=== PATIENT | male | born 2000 | race Caucasian/White ===

== ENCOUNTER 2025-03-30 19:26 | Emergency (ER) | payer OTHER ==
[2025-03-30] MEDS ORDERED: NA CHLORIDE 0.9% 1,000 ML ONE (20:04)
[2025-03-30 20:39] LABS: Absolute Basophils 0.1 K/uL (0-0.5); Absolute Lymphocytes (CBC) 1.5 K/uL (0.7-4.9); Absolute Monocytes 1.2 K/uL (0.1-1.3); Absolute Neutrophil 11.5 K/uL (1.8-8.0); Basophils % 0.4 % (0-1.3); Eosinophils % 0.1 % (0-4.4); Hematocrit 43.8 % (39.6-49.0); Hemoglobin 15.2 g/dL (13.6-17.9); Lymphocytes % 10.5 % (15.3-44.8); MCH 32.2 pg (27.0-35.0); MCHC 34.7 g/dL (32.0-36.0); MCV 92.6 fL (80-100); MPV 7.5 fL (7.6-11.3); Monocytes % 8.6 % (3.3-12.3); Neutrophils % 80.4 % (41.7-73.7); Platelets 243 thou/uL (152-406); RBC Red Blood Cell Count 4.73 M/uL (4.33-5.43); Red Cell Distribution Width 14.3 % (12.1-15.2)
[2025-03-30 20:50] LABS: Albumin 3.7 g/dL (3.4-5.0); Anion Gap 10.5 mEq/L (5.0-15.0); Bilirubin Total 0.4 mg/dL (0.2-1.0); C-Reactive Protein 55.5 mg/L (<3.00); Globulin 3.6 g/dL (2.3-3.5); Potassium 3.5 mEq/L (3.5-5.1); Protein, Total 7.3 g/dL (6.4-8.2)
--- NOTE | 2025-03-30 21:05 | RAD REPORT ---
EXAMINATION: UPPER EXTREMITY VENOUS UNILATE CLINICAL INDICATION: Right arm pain TECHNIQUE: Complete bilateral duplex sonography of the right upper extremity veins was performed. The examination included compression for vein patency, color Doppler imaging and flow augmentation in response to distal compression of the internal jugular,, subclavian, axillary, brachial, radial, ulna r, cephalic and basilic veins. .Grayscale, color and spectral analysis performed on all vessels COMPARISON: No prior exam. FINDINGS: The right internal jugular, subclavian, axillary, brachial, basilic, cephalic, radial and ulnar veins are generally compressible and demonstrate augmentation. Color Doppler demonstrates good flow. IMPRESSION: No evidence of venous thrombus right arm
[2025-03-30] MEDS ORDERED: SMZ./TMP. 800/160 MG TABLET ONE ×2 (21:48→22:01)
[2025-03-30] MEDS ORDERED: KETOROLAC 30 MG/ML INJ ONE (21:48)
[2025-03-30] MEDS ORDERED: CLINDAMYCIN 900MG/D5W 900 MG/50 ML IVPB IV ONE (21:49)
--- NOTE | 2025-03-30 22:23 | ER ---
Nurse's Notes [facility] Name: Tk Slaughter Age: 24 yrs Sex: Male : 2000 Arrival Date: 03/30/2025 Time: 19:26 Bed 15 Private MD: Diagnosis: Cellulitis of right upper limb Presentation: 03/30 19:37 Chief complaint: Patient states: right upper arm pain, redness and swelling beginning lg3 this morning. Coronavirus screen: Client denies travel out of the [place] in the last 14 days. At this time, the client does not indicate any symptoms associated with coronavirus-19. Ebola Screen: No symptoms or risks identified at this time. Initial Sepsis Screen: Does the patient meet any 2 criteria? No. Patient's initial sepsis screen is negative. Does the patient have a suspected source of infection? No. Patient's initial sepsis screen is negative. Risk Assessment: Do you want to hurt yourself or someone else? Patient reports no desire to harm self or others. Onset of symptoms was March 30, 2025. 19:37 Method Of Arrival: Ambulatory lg3 19:37 Acuity: CHEN 3 lg3 Triage Assessment: 19:39 General: Appears in no apparent distress. comfortable, Behavior is calm, cooperative. lg3 Pain: Complains of pain in right tricep. EENT: No deficits noted. No signs and/or symptoms were reported regarding the EENT system. Neuro: No deficits noted. Rodriguez Agitation-Sedation Scale (RASS): 0 - Alert and Calm Level of Consciousness is awake, alert, obeys commands, Oriented to person, place, time, situation. Cardiovascular: No deficits noted. Denies chest pain, shortness of breath, Capillary refill < 3 seconds Clubbing of nail beds is absent JVD is absent Patient's skin is warm and dry. Respiratory: No deficits noted. Airway is patent Respiratory effort is even, unlabored, Respiratory pattern is regular, symmetrical. GI: No deficits noted. No signs and/or symptoms were reported involving the gastrointestinal system. : No signs and/or symptoms were reported regarding the genitourinary system. Derm: Skin is intact, is healthy with good turgor, Skin is dry, Skin is normal, Skin temperature is warm redness and swelling to right upper arm noted. Musculoskeletal: No deficits noted. Circulation, motion, and sensation intact. Range of motion: intact in all extremities. Historical: - Allergies: 19:39 No Known Allergies; lg3 - Home Meds: 19:39 None [Active]; lg3 - PMHx: 19:39 None; lg3 - PSHx: 19:39 left wrist; right ankle; lg3 - Immunization history:: Adult Immunizations up to date. - Infectious Disease History:: Denies. - Social history:: Smoking status: Reported history of juuling and/or vaping. Patient uses alcohol, occasionally. Screenin:31 [facility] ED Fall Risk Assessment (Adult) History of falling in the last 3 months, cm10 including since admission No falls in past 3 months (0 pts) Confusion or Disorientation No (0 pts) Intoxicated or Sedated No (0 pts) Impaired Gait No (0 pts) Mobility Assist Device Used No (0 pt) Altered Elimination No (0 pt) Score/Fall Risk Level 0 - 2 = Low Risk Oriented to surroundings, Maintained a safe environment, Hourly rounding (assess needs \T\ fall precautionary measures) done. Abuse screen: Denies threats or abuse. Denies injuries from another. Nutritional screening: No deficits noted. Tuberculosis screening: No symptoms or risk factors identified. Assessment: 20:30 General: Appears in no apparent distress. comfortable, Behavior is calm, cooperative. cm10 Pain: Complains of pain in right arm Pain currently is 4 out of 10 on a pain scale. Neuro: No deficits noted. Level of Consciousness is awake, alert, obeys commands, Oriented to person, place, time, situation, Appropriate for age. Respiratory: No deficits noted. Airway is patent Respiratory effort is even, unlabored, Respiratory pattern is regular, symmetrical. Derm: redness and swelling right upper arm. 22:04 Reassessment: Patient appears in no apparent distress at this time. Patient and/or cm10 family updated on plan of care and expected duration. Pain level reassessed. Patient is alert, oriented x 3, equal unlabored respirations, skin warm/dry/pink. Vital Signs: 19:37 BP 153 / 62; Pulse 98; Resp 16 S; Temp 98.4(O); Pulse Ox 99% on R/A; Weight 86.18 kg lg3 (R); Height 5 ft. 8 in. (R); Pain 4/10; 19:43 BP 160 / 53; Pulse 99; Resp 14 S; Temp 98.7(O); Pulse Ox 97% on R/A; Weight 86.18 kg sa1 (R); Height 5 ft. 8 in. (R); 21:00 BP 147 / 73; Pulse 96; Resp 15; Pulse Ox 100% on R/A; cm10 22:00 BP 134 / 65; Pulse 94; Resp 16; Pulse Ox 99% on R/A; cm10 22:52 BP 127 / 69; Pulse 87; Resp 16; Temp 98.4; Pulse Ox 98% on R/A; dd2 19:43 Body Mass Index 28.89 (86.18 kg, 172.72 cm) sa1 19:37 Pain Scale: Adult 3 ED Course: 19:30 Patient arrived in ED. jj6 19:32 Bandar Grimm PA is PHCP. cp 19:32 Torie Pierre MD is Attending Physician. cp 19:39 Triage completed. lg3 19:40 Blanca Escudero, RN is Primary Nurse. cm10 19:40 Arm band placed on right wrist. Patient placed in an exam room, on a stretcher. cm10 20:22 Initial lab(s) drawn, by me, sent to lab. First set of blood cultures drawn by me. cm10 Inserted saline lock: 20 gauge in left forearm, using aseptic technique. Blood collected. Flushed with 10 mL NS. 20:29 CBC with Diff Sent. cm10 20:29 CRP Sent. cm10 20:29 CMP Sent. cm10 20:29 Lactate w/ 2H reflex if indic. Sent. cm10 20:31 Patient has correct armband on for positive identification. Placed in gown. Bed in low cm10 position. Call light in reach. Side rails up X 1. Pulse ox on. NIBP on. 20:51 UPPER EXTREMITY VENOUS UNILATE In Process Unspecified. EDMS 20:59 Second set of blood cultures drawn by me. sa1 21:01 Sebastian Noland MD is Attending Physician. cp 22:52 Provided Education on: d/c education, medication and f/u. dd2 22:52 No provider procedures requiring assistance completed. IV discontinued, intact, dd2 bleeding controlled, No redness/swelling at site. Pressure dressing applied. Administered Medications: 20:22 Drug: NS 0.9% IV 1000 ml IV at 1000 ml once; to be given as a bolus over 60 minutes cm10 Route: IV; Rate: 1000 ml; Site: left forearm; 21:30 Follow up: Response: No adverse reaction; IV Status: Completed infusion; IV Intake: dd2 1000ml 22:03 Follow up: Response: No adverse reaction; IV Status: Completed infusion; IV Intake: cm10 1000ml 22:02 Drug: Clindamycin IVPB 900 mg IVPB once over 30 mins; (mix in 50 mL) Route: IVPB; cm10 Infused Over: 30 mins; Site: left forearm; 22:45 Follow up: Response: No adverse reaction; IV Status: Infusion continued dd2 22:02 Drug: Trimethoprim-Sulfamethoxazole PO (160 mg-800 mg (DS) 2 tablet PO once Route: PO; cm10 22:51 Follow up: Response: No adverse reaction dd2 22:02 Drug: Ketorolac IVP 15 mg IVP once Route: IVP; Site: left forearm; cm10 22:13 Follow up: Response: No adverse reaction dd2 Medication: 20:31 VIS not applicable for this client. cm10 Intake: 21:30 IV: 1000ml; Total: 1000ml. dd2 22:03 IV: 1000ml; Total: 2000ml. cm10 Outcome: 22:22 Discharge ordered by MD. cp 22:52 Discharged to home ambulatory, dd2 22:52 Condition: stable 22:52 Discharge instructions given to patient, Instructed on discharge instructions, follow up and referral plans. medication usage, Demonstrated understanding of instructions, follow-up care, medications, Prescriptions given X 3, 22:54 Patient left the ED. dd2 Signatures: Dispatcher [employer] EDMS Bandar Grimm PA PA cp Able, Lacie RN RN lg3 Raisa Hunter jj6 Blanca Escudero RN RN cm10 Sultan Kanwal 1 KULWINDER WILLOUGHBY RN RN dd2
--- NOTE | 2025-03-30 22:23 | EDPHYS ---
Physician Documentation [facility] Name: Tk Slaughter Age: 24 yrs Sex: Male : 2000 Arrival Date: 03/30/2025 Time: 19:26 Bed 15 Private MD: ED Physician Sebastian Noland HPI: 03/30 20:05 This 24 yrs old Male presents to ER via Ambulatory with complaints of Rash, Arm Problem.cp 20:05 The patient or guardian complains of Patient is a 24-year-old male with no significant cp past medical history who reports upon awakening this morning he noticed that his right upper arm felt warm, noticed some redness and was painful to the touch. He states that throughout the day today the redness and discomfort has increased. Reports she was at work today when a heavy piece of equipment did strike his right upper arm but the redness swelling and pain started prior to that. Patient denies fever, chills and/or sweats. Historical: - Allergies: 19:39 No Known Allergies; lg3 - Home Meds: 19:39 None [Active]; lg3 - PMHx: 19:39 None; lg3 - PSHx: 19:39 left wrist; right ankle; lg3 - Immunization history:: Adult Immunizations up to date. - Infectious Disease History:: Denies. - Social history:: Smoking status: Reported history of juuling and/or vaping. Patient uses alcohol, occasionally. ROS: 20:10 Constitutional: Negative for body aches, chills, fever, poor PO intake, cp 20:10 Eyes: Negative for injury, pain, redness, and discharge, cp 20:10 Cardiovascular: Negative for chest pain, 20:10 Respiratory: Negative for cough, shortness of breath, wheezing, 20:10 Abdomen/GI: Negative for abdominal pain, nausea, vomiting, and diarrhea, 20:10 Back: Negative for pain at rest, pain with movement, 20:10 MS/extremity: Positive for swelling, tenderness, warmth, of the right upper arm, Negative for decreased range of motion, deformity, paresthesias, 20:10 Neuro: Negative for altered mental status, dizziness, headache, syncope, weakness, 20:10 All other systems are negative, Exam: 20:15 Constitutional: The patient appears in no acute distress, alert, awake, cp non-diaphoretic, non-toxic, well developed, well nourished, 20:15 Head/Face: Normocephalic, atraumatic. cp 20:15 Eyes: Periorbital structures: appear normal, Conjunctiva: normal, no exudate, no injection, Sclera: no appreciated abnormality, Lids and lashes: appear normal, bilaterally, 20:15 ENT: External ear(s): are unremarkable, Nose: is normal, Mouth: Lips: moist, Oral mucosa: moist, Posterior pharynx: Airway: no evidence of obstruction, patent, 20:15 Neck: ROM/movement: is normal, is supple, without pain, no range of motions limitations, no meningismus, no nuchal rigidity, 20:15 Chest/axilla: Inspection: normal, Palpation: is normal, no crepitus, no tenderness, 20:15 Cardiovascular: Rate: normal, Rhythm: regular, Pulses: Pulses are 2+ in right radial artery. JVD: is not appreciated, 20:15 Respiratory: the patient does not display signs of respiratory distress, Respirations: normal, no use of accessory muscles, no retractions, labored breathing, is not present, Breath sounds: are clear throughout, no decreased breath sounds, no stridor, no wheezing, 20:15 Abdomen/GI: Inspection: abdomen appears normal, Palpation: abdomen is soft and non-tender, in all quadrants, 20:15 Musculoskeletal/extremity: Extremities: noted in the right upper arm: Well-circumscribed area of erythema noted to the right anterior and lateral upper arm, area is approximately the size of a softball, there is mild induration, skin is warm to the touch and tender, 20:15 Neuro: Orientation: to person, place \T\ time. Mentation: is normal, Motor: moves all fours, strength is normal, Sensation: is normal, Vital Signs: 19:37 BP 153 / 62; Pulse 98; Resp 16 S; Temp 98.4(O); Pulse Ox 99% on R/A; Weight 86.18 kg lg3 (R); Height 5 ft. 8 in. (R); Pain 4/10; 19:43 BP 160 / 53; Pulse 99; Resp 14 S; Temp 98.7(O); Pulse Ox 97% on R/A; Weight 86.18 kg sa1 (R); Height 5 ft. 8 in. (R); 21:00 BP 147 / 73; Pulse 96; Resp 15; Pulse Ox 100% on R/A; cm10 22:00 BP 134 / 65; Pulse 94; Resp 16; Pulse Ox 99% on R/A; cm10 22:52 BP 127 / 69; Pulse 87; Resp 16; Temp 98.4; Pulse Ox 98% on R/A; dd2 19:43 Body Mass Index 28.89 (86.18 kg, 172.72 cm) sa1 19:37 Pain Scale: Adult lg3 MDM: 19:38 Medical Screening Exam initiated cp 22:21 Data reviewed: vital signs, nurses notes, lab test result(s), radiologic studies, cp ultrasound, and as a result, I will discharge patient. 22:21 Differential diagnosis: abscess, dvt, cellulitis, sepsis. I considered the following cp discharge prescriptions or medication management in the emergency department Medications were administered in the Emergency Department. See MAR. Counseling: I had a detailed discussion with the patient and/or guardian regarding the historical points, exam findings, and any diagnostic results supporting the discharge/admit diagnosis, lab results, radiology results, to return to the emergency department if symptoms worsen or persist or if there are any questions or concerns that arise at home. Response to treatment: the patient's symptoms have mildly improved after treatment, and as a result, I will discharge patient. 03/30 20:01 Order name: CBC with Diff; Complete Time: 21:00 cp 03/30 20:01 Order name: CRP; Complete Time: 21:00 cp 03/30 20:01 Order name: CMP; Complete Time: 21:00 cp 03/30 20:01 Order name: Lactate w/ 2H reflex if indic.; Complete Time: 21:00 cp 03/30 20:01 Order name: Blood Culture Adult (2) cp 03/30 20:11 Order name: UPPER EXTREMITY VENOUS UNILATE; Complete Time: 21:36 EDMS 03/30 20:01 Order name: IV; Complete Time: 20:28 cp Administered Medications: 20:22 Drug: NS 0.9% IV 1000 ml IV at 1000 ml once; to be given as a bolus over 60 minutes cm10 Route: IV; Rate: 1000 ml; Site: left forearm; 21:30 Follow up: Response: No adverse reaction; IV Status: Completed infusion; IV Intake: dd2 1000ml 22:03 Follow up: Response: No adverse reaction; IV Status: Completed infusion; IV Intake: cm10 1000ml 22:02 Drug: Clindamycin IVPB 900 mg IVPB once over 30 mins; (mix in 50 mL) Route: IVPB; cm10 Infused Over: 30 mins; Site: left forearm; 22:45 Follow up: Response: No adverse reaction; IV Status: Infusion continued dd2 22:02 Drug: Trimethoprim-Sulfamethoxazole PO (160 mg-800 mg (DS) 2 tablet PO once Route: PO; cm10 22:51 Follow up: Response: No adverse reaction dd2 22:02 Drug: Ketorolac IVP 15 mg IVP once Route: IVP; Site: left forearm; cm10 22:13 Follow up: Response: No adverse reaction dd2 Disposition Summary: 03/30/25 22:22 Discharge Ordered Notes: Location: Home cp Problem: new cp Symptoms: have improved cp Condition: Stable cp Diagnosis - Cellulitis of right upper limb cp Followup: cp - With: Private Physician - When: 2 - 3 days - Reason: Recheck today's complaints Discharge Instructions: - Discharge Summary Sheet cp - Cellulitis, Adult cp Forms: - Medication Reconciliation Form cp - Antibiotic Education cp - Prescription Opioid Use cp - Patient Portal Instructions cp - Leadership Thank You Letter cp Prescriptions: - Anaprox DS 550 mg Oral Tablet - take 1 tablet ORAL route every 12 hours As needed; 20 tablet; Refills: 0, cp Product Selection Permitted - Clindamycin HCl 300 mg Oral Capsule - take 1 capsule ORAL route every 6 hours for 10 days; 40 capsule; Refills: 0, cp Product Selection Permitted - Bactrim DS 800-160 mg Oral Tablet - take 1 tablet ORAL route every 12 hours for 10 days; 20 tablet; Refills: 0, cp Product Selection Permitted Signatures: Dispatcher [employer] EDMS Bandar Grimm PA PA cp Able, Lacie, RN RN lg3 Blanca Escudero RN RN cm10 KULWINDER WILLOUGHBY RN dd2 Corrections: (The following items were deleted from the chart) 20:11 20:01 Extremity Venous Uni [email or web address] ordered. EDMS EDMS
[2025-03-30 23:28] VITALS: TEMP 98.4
[2025-03-30 23:34] VITALS: BP 127/69; O2SAT 98
== END 2025-03-30 22:54 | disposition home or self-care (01) ==
LOC: ER 19:26
DX: L03.113 Cellulitis of right upper limb (principal)
CPT/HCPCS: 96365; 96361; 87040 ×2; 85025; 36415; 83605; 80053; 86140; 93971; 96375; 99284; J7030

== ENCOUNTER 2025-04-01 13:56 | Emergency (ER) | payer OTHER ==
[2025-04-01] MEDS ORDERED: SMZ./TMP. 800/160 MG TABLET ONE (14:15)
--- NOTE | 2025-04-01 14:18 | EDPHYS ---
Physician Documentation [facility] Name: Tk Slaughter Age: 24 yrs Sex: Male : 2000 Arrival Date: 04/01/2025 Time: 13:56 Bed 20 Private MD: ED Physician Bandar Hernandez HPI: 04/01 14:11 This 24 yrs old Male presents to ER via Ambulatory with complaints of Arm shereen infection. 14:11 The patient presents with an abscess of the right bicep and right tricep, The patient shereen presents with cellulitis of the right arm, the patient presents with a swollen area of the right bicep. Description: erythematous, swollen. Onset: The symptoms/episode began/occurred 3 day(s) ago. The patient or guardian complains of an abscess, decreased range of motion, pain, that is acute. The complaints affect the right bicep and right tricep. Modifying factors: The symptoms are alleviated by nothing. the symptoms are aggravated by nothing. Severity of symptoms: At their worst the symptoms were moderate. Historical: - Allergies: 14:09 No Known Allergies; ss - PSHx: 14:09 Left wrist; Right Ankle; ss - Immunization history:: Adult Immunizations. - Infectious Disease History:: Denies. - Social history:: Smoking status: Patient denies any tobacco usage or history of. - Family history:: not pertinent. ROS: 14:11 Constitutional: Negative for fever, chills, and weight loss, Eyes: Negative for injury, shereen pain, redness, and discharge, ENT: Negative for injury, pain, and discharge, Neck: Negative for injury, pain, and swelling, Cardiovascular: Negative for chest pain, palpitations, and edema, Respiratory: Negative for shortness of breath, cough, wheezing, and pleuritic chest pain, Abdomen/GI: Negative for abdominal pain, nausea, vomiting, diarrhea, and constipation, Back: Negative for injury and pain, : Negative for injury, bleeding, discharge, and swelling, Neuro: Negative for headache, weakness, numbness, tingling, and seizure, Psych: Negative for depression, anxiety, suicide ideation, homicidal ideation, and hallucinations, Allergy/Immunology: Negative for hives, rash, and allergies, Endocrine: Negative for neck swelling, polydipsia, polyuria, polyphagia, and marked weight changes, Hematologic/Lymphatic: Negative for swollen nodes, abnormal bleeding, and unusual bruising, 14:11 MS/extremity: Positive for injury or acute deformity, decreased range of motion, pain, swelling, tenderness, warmth, Exam: 14:13 Constitutional: This is a well developed, well nourished patient who is awake, alert, shereen and in no acute distress. Head/Face: Normocephalic, atraumatic. Eyes: Pupils equal round and reactive to light, extra-ocular motions intact. Lids and lashes normal. Conjunctiva and sclera are non-icteric and not injected. Cornea within normal limits. Periorbital areas with no swelling, redness, or edema. ENT: Nares patent. No nasal discharge, no septal abnormalities noted. Tympanic membranes are normal and external auditory canals are clear. Oropharynx with no redness, swelling, or masses, exudates, or evidence of obstruction, uvula midline. Mucous membranes moist. Neck: Trachea midline, no thyromegaly or masses palpated, and no cervical lymphadenopathy. Supple, full range of motion without nuchal rigidity, or vertebral point tenderness. No Meningismus. Chest/axilla: Normal chest wall appearance and motion. Nontender with no deformity. No lesions are appreciated. Cardiovascular: Regular rate and rhythm with a normal S1 and S2. No gallops, murmurs, or rubs. Normal PMI, no JVD. No pulse deficits. Respiratory: Lungs have equal breath sounds bilaterally, clear to auscultation and percussion. No rales, rhonchi or wheezes noted. No increased work of breathing, no retractions or nasal flaring. Abdomen/GI: Soft, non-tender, with normal bowel sounds. No distension or tympany. No guarding or rebound. No evidence of tenderness throughout. Back: No spinal tenderness. No costovertebral tenderness. Full range of motion. Male : Normal genitalia with no discharge or lesions. MS/ Extremity: Pulses equal, no cyanosis. Neurovascular intact. Full, normal range of motion., bilateral aka Neuro: Awake and alert, GCS 15, oriented to person, place, time, and situation. Cranial nerves II-XII grossly intact. Motor strength 5/5 in all extremities. Sensory grossly intact. Cerebellar exam normal. Normal gait. Psych: Awake, alert, with orientation to person, place and time. Behavior, mood, and affect are within normal limits. 14:13 Skin: cellulitis, that is mild, induration, that is mild is noted, Vital Signs: 14:07 BP 125 / 87; Pulse 93; Resp 14; Temp 97.8(O); Pulse Ox 98% on R/A; Weight 86.18 kg; ss Height 5 ft. 8 in. ; Pain 0/10; 14:07 Body Mass Index 28.89 (86.18 kg, 172.72 cm) 14:07 Pain Scale: Adult ss MDM: 14:01 Medical Screening Exam initiated shereen 14:14 Data reviewed: vital signs, nurses notes. Consideration of Admission/Observation shereen Escalation of care including admission/observation considered. I considered the following discharge prescriptions or medication management in the emergency department Medications were administered in the Emergency Department. See MAR. Test considered but Not performed: Labs: no labs. Care significantly affected by the following chronic conditions: none. Counseling: I had a detailed discussion with the patient and/or guardian regarding the historical points, exam findings, and any diagnostic results supporting the discharge/admit diagnosis, the need for outpatient follow up, a general surgeon. Administered Medications: 14:18 Drug: Trimethoprim-Sulfamethoxazole PO (160 mg-800 mg (DS) 1 tablet PO once Route: PO; kj2 14:25 Follow up: Response: No adverse reaction ll1 Disposition Summary: 04/01/25 14:18 Discharge Ordered Notes: Location: Home shereen Problem: new shereen Symptoms: have improved shereen Condition: Stable shereen Diagnosis - Cellulitis and acute lymphangitis of other parts of limb shereen - Insect bite (nonvenomous) of right upper arm shereen Followup: shereen - With: Private Physician - When: 2 - 3 days - Reason: Recheck today's complaints, Continuance of care, Re-evaluation by your physician Followup: shereen - With: Horace Sage MD - When: 2 - 3 days - Reason: Recheck today's complaints, Re-evaluation by your physician Discharge Instructions: - Discharge Summary Sheet shereen - Insect Bite, Adult, [id number] shereen - Insect Bite, Adult shereen - Cellulitis, Adult shereen - Cellulitis, Adult, [id number] shereen Forms: - Medication Reconciliation Form shereen - Antibiotic Education shereen - Prescription Opioid Use shereen - Patient Portal Instructions [facility] - Leadership Thank You Letter [facility] Prescriptions: - Clindamycin HCl 300 mg Oral Capsule - take 1 capsule ORAL route every 6 hours for 10 days; 40 capsule; Refills: 0, [facility] Product Selection Permitted - Bactrim DS 800-160 mg Oral Tablet - take 1 tablet ORAL route every 12 hours for 10 days; 20 tablet; Refills: 0, [facility] Product Selection Permitted Signatures: Bandar Hernandez MD MD cha Blanchard, Shelby, RN RN ss Refugio Hammond RN RN ll1 Denisse Bruce RN RN kj2
--- NOTE | 2025-04-01 14:18 | ER ---
Nurse's Notes [facility] Name: Tk Slaughter Age: 24 yrs Sex: Male : 2000 Arrival Date: 04/01/2025 Time: 13:56 Bed 20 Private MD: Diagnosis: Cellulitis and acute lymphangitis of other parts of limb;Insect bite (nonvenomous) of right upper arm Presentation: 04/01 14:07 Chief complaint: Patient states: given abx for cellulitis two days ago. Pt reports ss redness seems to be spreading in one area, but improving in another. Coronavirus screen: Client denies travel out of the [place] in the last 14 days. Ebola Screen: Patient denies exposure to infectious person. Patient denies travel to an Ebola-affected area in the 21 days before illness onset. Initial Sepsis Screen: Does the patient meet any 2 criteria? No. Patient's initial sepsis screen is negative. Does the patient have a suspected source of infection? No. Patient's initial sepsis screen is negative. Risk Assessment: Do you want to hurt yourself or someone else? Patient reports no desire to harm self or others. Note Pt reports he has not been taking his clindamycin 4 times a day and has not been taking the Bactrim at all. Dr. Hernandez at bedside educating pt now. Onset of symptoms was April 01, 2025. 14:07 Method Of Arrival: Ambulatory ss 14:07 Acuity: CHEN 5 ss Historical: - Allergies: 14:09 No Known Allergies; ss - PSHx: 14:09 Left wrist; Right Ankle; ss - Immunization history:: Adult Immunizations. - Infectious Disease History:: Denies. - Social history:: Smoking status: Patient denies any tobacco usage or history of. - Family history:: not pertinent. Screenin:20 [facility] ED Fall Risk Assessment (Adult) History of falling in the last 3 months, kj2 including since admission No falls in past 3 months (0 pts) Confusion or Disorientation No (0 pts) Intoxicated or Sedated No (0 pts) Impaired Gait No (0 pts) Mobility Assist Device Used No (0 pt) Altered Elimination No (0 pt) Score/Fall Risk Level 0 - 2 = Low Risk Maintained a safe environment, Hourly rounding (assess needs \T\ fall precautionary measures) done. Abuse screen: Denies threats or abuse. Denies injuries from another. Nutritional screening: No deficits noted. Tuberculosis screening: No symptoms or risk factors identified. Assessment: 14:18 General: Appears in no apparent distress. Behavior is calm, cooperative. Pain: kj2 Complains of pain in right bicep and right arm Pain currently is 3 out of 10 on a pain scale. Neuro: Level of Consciousness is awake, alert, obeys commands, Oriented to person, place, time, situation. Cardiovascular: Patient's skin is warm and dry. Respiratory: Airway is patent Respiratory effort is even, unlabored. GI: No signs and/or symptoms were reported involving the gastrointestinal system. : No signs and/or symptoms were reported regarding the genitourinary system. 14:25 Reassessment: No changes from previously documented assessment. Patient and/or family ll1 updated on plan of care and expected duration. Pain level reassessed. Vital Signs: 14:07 BP 125 / 87; Pulse 93; Resp 14; Temp 97.8(O); Pulse Ox 98% on R/A; Weight 86.18 kg; ss Height 5 ft. 8 in. ; Pain 0/10; 14:07 Body Mass Index 28.89 (86.18 kg, 172.72 cm) 14:07 Pain Scale: Adult ss ED Course: 13:58 Patient arrived in ED. mr 14:01 Bandar Hernandez MD is Attending Physician. [facility] 14:09 Triage completed. 14:09 Arm band placed on right wrist. 14:17 Horace Sage MD is Referral Physician. [facility] 14:20 Patient has correct armband on for positive identification. Bed in low position. Call kj2 light in reach. Provided Education on: call light. 14:25 No provider procedures requiring assistance completed. Patient did not have IV access ll1 during this emergency room visit. Administered Medications: 14:18 Drug: Trimethoprim-Sulfamethoxazole PO (160 mg-800 mg (DS) 1 tablet PO once Route: PO; kj2 14:25 Follow up: Response: No adverse reaction ll1 Medication: 14:21 VIS not applicable for this client. kj2 Outcome: 14:18 Discharge ordered by . [facility] 14:25 Discharged to home ambulatory, ll1 14:25 Condition: stable 14:25 Discharge instructions given to patient, Instructed on discharge instructions, follow up and referral plans. Demonstrated understanding of instructions, follow-up care, 14:26 Patient left the ED. ll1 Signatures: Bandar Hernandez MD MD cha Rivera Roseann, [facility] mr Marjorie Garcia, ROSEANNA RN ss Refuigo Hammond RN RN ll1 Denisse Bruce RN RN kj2
[2025-04-01 15:43] VITALS: BP 125/87; TEMP 97.8; O2SAT 98
== END 2025-04-01 14:26 | disposition home or self-care (01) ==
LOC: ER 13:56
DX: L03.113 Cellulitis of right upper limb (principal); L03.123 Acute lymphangitis of right upper limb
CPT/HCPCS: 99283